=== PATIENT | female | born 1955 | race Caucasian/White ===

== ENCOUNTER → 2021-05-10 | Outpatient (CLI) | payer MEDICARE, MEDICAID, SELFPAY | END | disposition home or self-care (01) | PROVIDERS: PCP Physician Assistant; Referring Provider Physician Assistant; Visit Provider Physician Assistant | DX: I10 Essential (primary) hypertension (principal) ==

== ENCOUNTER → 2025-02-23 | Outpatient (CLI) | payer MEDICARE, MEDICAID, SELFPAY ==
--- NOTE | 2025-02-23 15:30 | XR_ITS ---
Examination: CT chest, without intravenous contrast. Sagittal and coronal 2-D reconstructions. Exam date and time: February 23, 2025 1535 hours INDICATIONS: Nicotine dependence smoking history 30 years CTDI:vol (mGy) , 6.48 DLP: (mGycm) 273 Technique: Multiple 3.0 mm axial sections of the chest to been obtained. Bone and lung density settings are obtained. Sagittal and coronal 2-D reconstructions have been obtained. Low dose protocols were performed. One or more of the following dose reduction techniques were used; automated exposure control, adjustment of the mA and/or KV according to patient size, use of iterative reconstruction technique. Findings: AP dimension ascending thoracic aorta 3.9 cm No pathologic mediastinal lymphadenopathy 4 mm pulmonary nodule anterior segment right upper lobe image 231 No pneumonia or pulmonary edema No pleural disease No visualized liver lesion Right percutaneous nephrostomy drainage tube, severely scarred right kidney, no hydronephrosis, 2 mm right renal calculus Heavy abdominal aortic calcification IMPRESSION: 4 mm pulmonary nodule anterior segment right upper lobe, recommend 6 month follow-up CT chest without contrast
== END | disposition home or self-care (01) ==
PROVIDERS: PCP Physician Assistant; Referring Provider Physician Assistant; Visit Provider Physician Assistant
DX: R91.1 Solitary pulmonary nodule (principal); F17.200 Nicotine dependence, unspecified, uncomplicated; J44.9 Chronic obstructive pulmonary disease, unspecified
CPT/HCPCS: 71250